=== PATIENT | male | born 2000 | race Caucasian/White ===

== ENCOUNTER 2024-12-13 16:27 | Emergency (ER) | payer BC, SELFPAY ==
[2024-12-13 16:47] VITALS: BP 161/93
[2024-12-13 17:12] LABS: % Basophils 0.5 % (0-2); % Eosinophils 0.7 % (0-6); % Immature Granulocytes 0.4 % (0-0.5); % Lymphocytes 18.1 % (20.5-51.1); % Monocytes 10.8 % (1.7-9.3); % Neutrophils 69.5 % (42.2-75.2); Absolute Eosinophils 0.1 10^3/uL (0-0.7); Absolute Lymphocytes 1.5 10^3/uL (1.2-3.4); Absolute Monocytes 0.9 10^3/uL (0.1-0.6); Absolute Neutrophils 5.9 10^3/uL (1.4-6.5); Hematocrit 43.4 % (39.0-52.0); Hemoglobin 14.2 g/dL (13.0-18.0); Mean Corp Hgb Conc. 32.7 g/dL (33.0-37.0); Mean Corpuscular Hgb 26.1 pg (27.0-31.0); Mean Corpuscular Volume 79.8 fL (80.0-94.0); Mean Platelet Volume 8.9 fL (7.4-10.4); Nucleated Red Blood Cells % 0 % (-); Platelet Count 212 10^3/uL (130-400); Red Blood Cell Count 5.44 10^6/uL (4.70-6.10); Red Cell Dist. Width 13.6 % (11.5-14.5); White Blood Cell Count 8.4 10^3/uL (4.8-10.8)
[2024-12-13 17:27] LABS: Urine Albumin 1+ (Neg - Trace); Urine Bilirubin Negative (Negative); Urine Character Clear (Clear); Urine Color Yellow; Urine Glucose Negative (Negative); Urine Ketone 2+ (Negative); Urine Leukocyte Negative (Negative); Urine Nitrite Negative (Negative); Urine Occult Blood 2+ (Negative); Urine Specific Gravity 1.025 (<1.030); Urine Urobilinogen Negative (Neg - 1+)
[2024-12-13 17:33] LABS: ALT (SGPT) 25 U/L (0-50); AST (SGOT) 26 U/L (17-59); Albumin 4.6 g/dl (3.5-5.0); Alkaline Phosphatase 28 U/L (38-126); Blood Urea Nitrogen 19 mg/dl (9-20); Calcium 9.1 mg/dl (8.4-10.2); Carbon Dioxide 27 mmol/L (22-30); Chloride 104 mmol/L (98-107); Glucose 101 mg/dl (70-99); Potassium 3.5 mmol/L (3.5-5.1); Sodium 139 mmol/L (135-145); Total Bilirubin 0.4 mg/dl (0.2-1.3); Total Protein 7.7 g/dl (6.3-8.2); eGFR > 60.00
[2024-12-13 17:34] LABS: Lipase 45 U/L (23-300)
[2024-12-13 17:48] LABS: Urine Squamous Cell 0-2 /LPF (Few); Urine White Cell 0-2 /HPF (0-5)
--- NOTE | 2024-12-13 21:09 | ED.GENMED ---
History of Present Illness
General
Chief Complaint: Abdominal Pain
Source: patient
Exam Limitations: none
Time Seen by Provider: 12/13/24 19:52
Nursing documentation reviewed up to this point in time: agreed with
History of Present Illness
History of Present Illness:
24-year-old male presenting to the emergency department today with concerns of initial constipation 4 days ago now some diarrhea noted some blood in his stool which prompted come to the ER. He has been taking some aspirin at home for no clear
medical reason.
Review of Systems
Review of Systems
Allergies reviewed?: Yes
All Other Systems: ROS reviewed and negative except as documented in HPI and ROS
Phy Exam
Physical Exam
Physical Exam:
GENERAL: Alert , in no apparent distress
EYE: pupils equal and reactive
NECK: Supple, no significant adenopathy.
ENT: o/p clr, mmm.
CARDIAC: Regular rate and rhythm .
LUNGS: Clear breath sounds bilaterally, no acute respiratory distress, no wheezes/rales/rhonchi
ABDOMEN: External hemorrhoid with small scab no active bleeding stool is guaiac negative, abdomen is soft, without focal tenderness, no r/g, no cvat
NEUROLOGICAL: Alert and oriented, no focal neuro deficits
SKIN: Warm and dry, skin intact.
MUSCULOSKELETAL: No edema, well perfused.
PSYCH: Normal and appropriate interaction.
Course
Orders/Labs/Results
Orders:
Orders
12/13/24 16:53
Straight cath- Treatment ONCE
12/13/24 17:06
Complete Blood Count/With Diff Urgent
Comprehensive Metabolic Panel Urgent
Lipase Urgent
Urinalysis Reflex To Culture Urgent
Date Specimen was Collected: 12/13/24
Time Specimen was Collected: 16:53
Urine Microscopic Reflex Cult Urgent
Abnormal Lab Results
12/13/24
17:06
MCV 79.8 L fL
(80.0-94.0)
MCH 26.1 L pg
(27.0-31.0)
MCHC 32.7 L g/dL
(33.0-37.0)
Absolute Monos (auto) 0.9 H 10^3/uL
(0.1-0.6)
Lymphocytes % 18.1 L %
(20.5-51.1)
Monocytes % 10.8 H %
(1.7-9.3)
Glucose 101 H mg/dl
(70-99)
Alkaline Phosphatase 28 L U/L
(38-126)
Urine Ketones 2+ A
(Negative)
Ur Occult Blood Reflex 2+ A
(Negative)
Urine RBC 3-6 A /HPF
(0-2)
Urine Albumin (Reflex) 1+ A
(Neg - Trace)
12/13/24 17:06
12/13/24 17:06
Vital Signs
Initial and Last Documented VS:
Initial Vital Signs
Temp Pulse Resp BP Pulse Ox
98.5 F 102 18 161/93 100
12/13/24 16:47 12/13/24 16:47 12/13/24 16:47 12/13/24 16:47 12/13/24 16:47
Last Documented Vital Signs
Temp Pulse Resp BP Pulse Ox
98.5 F 102 18 161/93 99
12/13/24 16:47 12/13/24 16:47 12/13/24 16:47 12/13/24 16:47 12/13/24 20:26
MDM/Problems Addressed
MDM/Problems Addressed:
24-year-old male presenting with concerns of some red blood but otherwise brown stool yesterday and today. Here was found to have a hemorrhoid. No guaiac on light brown stool. Symptoms likely from hemorrhoid abdomen soft no evidence of emergent
pathology stable for outpatient follow-up return precautions given.
*Critical Care Note
Total Time (30-74mins, 75-104mins- exclusive of procedures): Not Applicable
ED Attending Note
-
Portions of this chart may have been created with voice recognition software.� Occasional wrong word or��sound alike� substitutions may have occurred due to the inherent limitations of voice recognition software.
Discharge Plan
Departure
Patient Disposition: Home (Routine Discharge)
Date of Disposition: 12/13/24
Time of Disposition: 21:10
Patient with high blood pressure during this ER visit?: No
Condition: Good
Covid-19: Not Applicable
Discharge Problem:
Hemorrhoid
Instructions: Hemorrhoids
Prescriptions:
New
Preparation H 0.25-14-74.9 % ointment
1 applic [place] [facility] Qty: 57 0RF
No Action
phytonadione (vitamin K1) [vitamin K] 1 mg/0.5 mL Solution
2 mg SC ONCE
aspirin 81 mg Tablet
81 mg PO DAILY
Referrals:
Alonso Dumont MD [Family Provider] -
Activity Restrictions/Additional Instructions:
You came to the emergency department today with concerns of some blood in your stool. You are found to have a hemorrhoid. Please use the ointment and follow-up closely with the primary care doctor. Return for any worsening, new or concerning
symptoms.
Interventions
Interventions:
*Risk Screen - Suicide Last Done: 12/13/24 16:47
*General Assessment Last Done: 12/13/24 19:32
*Neglect/Abuse Screening Last Done: 12/13/24 16:47
*ED- Fall Risk Assessment Last Done: 12/13/24 19:32
*ED COVID-19 Vaccine History Last Done: 12/13/24 19:32
KH-Grxekf-Ngevxbgric Assessment Last Done: 12/13/24 19:32
Discharge Date and Time
Print Language: GUYANESE
== END 2024-12-13 21:24 | disposition home or self-care (01) ==
LOC: EMR 16:27
PROVIDERS: EMERGENCY PHYSICIAN Student in an Organized Health Care Education/Training Program; FAMILY PHYSICIAN Family Medicine
DX: K64.9 Unspecified hemorrhoids (principal)
CPT/HCPCS: 99283; 80053; 81003; 81015; 83690; 85025